=== PATIENT | male | born 1945 | race Caucasian/White ===

== ENCOUNTER 2020-08-22 12:31 | Inpatient (IN) | payer MEDICARE, MEDICAID ==
[2020-08-22] MEDS ORDERED: Cefepime 2 GM VIAL ONE (14:29)
[2020-08-22 14:30] LABS: #Eosinphils 0.3 thou/uL (0.0-0.7); #Lymphocytes 1.3 thou/uL (1.20-3.40); #Monocytes 0.6 thou/uL (0.11-0.59); #Neutrophils 3.6 thou/uL (1.40-6.50); %Basophils 0.7 % (0.0-1.0); %Eosinophils 4.6 % (0.0-10.0); %Lymphocytes 22.1 % (21.0-51.0); %Monocytes 9.8 % (0.0-10.0); %Neutrophils 62.8 % (42.0-75.0); Hemoglobin 12.9 g/dL (14.0-18.0); Mean Corpuscular HGB CONC 33.6 g/dL (32.0-36.0); Mean Platelet Volume 6.5 fL (7.4-10.4); Platelet Count 241 thou/uL (130-400); RBC Distribution Width 13.1 % (11.5-14.5); Red Blood Cell (RBC) Count 3.79 mill/uL (4.70-6.10); White Blood Cell (WBC) Count 5.7 thou/uL (4.8-10.8)
[2020-08-22] MEDS ORDERED: Vancomycin 1 GM/200 ML BAG ONE (14:47)
[2020-08-22 14:55] LABS: ALT (SGPT) 11 U/L (8-55); AST (SGOT) 15 U/L (5-34); Albumin 3.8 g/dL (3.4-4.8); Alkaline Phosphatase 146 U/L (40-110); Anion Gap 15 mmol/L (10-20); BUN (Urea Nitrogen) 29 mg/dL (8.4-25.7); Bilirubin, Total 0.4 mg/dL (0.2-1.2); Calc. Creatinine Clearance 0 mL/min (70-130); Calcium 10.1 mg/dL (7.8-10.44); Carbon Dioxide 30 mmol/L (23-31); Chloride 94 mmol/L (98-107); Globulin 3.3 g/dL (2.4-3.5); Glucose 88 mg/dL (83-110); Potassium 3.2 mmol/L (3.5-5.1); Protein, Total 7.1 g/dL (5.8-8.1); Sodium 136 mmol/L (136-145)
[2020-08-22 15:42] LABS: Bilirubin Negative (Negative); Blood, Urine Trace (Negative); Clarity Turbid (Clear); Glucose, Urine (Dipstick) Normal (Negative); Ketone, Urine Negative (Negative); Leukocyte 500 Leu/uL (Negative); Nitrite 2+ (Negative); Protein, Urine (Dipstick) Negative (Neg-Trace); RBC/HPF 0-3 HPF (0-3); Specific Gravity, Urine 1.009 (1.002-1.036); Squamous Epithelial 0-3 HPF (0-3); Triple Phosphate Crystal 1+ HPF (None Seen); Urobilinogen Normal mg/dL (Less than 2); pH, Urine 7.5 (5.0-9.0)
[2020-08-22 15:55] LABS: Bacteria/HPF 1+ HPF (None Seen)
[2020-08-22] MEDS ORDERED: HYDROcodone/Acetaminophen 5/325 mg Tablet PO PRN (16:31)
[2020-08-22] MEDS ORDERED: Acetaminophen 325 MG TAB PO PRN (16:31)
[2020-08-22] MEDS ORDERED: Senokot S 8.6-50 MG TAB PO PRN (16:31)
[2020-08-22] MEDS ORDERED: Acetaminophen 650 MG Suppository PR PRN (16:31)
[2020-08-22] MEDS ORDERED: Bisacodyl 5 MG TAB PO PRN (16:31)
[2020-08-22] MEDS ORDERED: Vancomycin 1 GM in Premix Bag 1 BAG IVPB SCH (16:45)
[2020-08-22] MEDS ORDERED: HYDROcodone/Acetaminophen 5/325 mg Tablet ONE (17:26)
[2020-08-22] MEDS ORDERED: Heparin 5,000 UNITS/ML VIAL SC SCH (21:00)
[2020-08-22] MEDS ORDERED: Atorvastatin Calcium 40 MG TAB PO SCH (21:00)
[2020-08-23] MEDS ORDERED: Cefepime 2 GM in Sodium Chloride 0.9% 100 ML IVPB SCH ×2 (02:00→14:00)
[2020-08-23] MEDS ORDERED: Aspirin 325 MG TAB PO SCH (09:00)
[2020-08-23] MEDS ORDERED: Vancomycin 1 GM in Premix Bag 1 BAG IVPB SCH (15:00)
== END 2020-08-22 19:49 | disposition short-term general hospital (02) | DRG 603 ==
LOC: ERS 12:31 → ERHOLD 14:51
PROVIDERS: ADMIT Internal Medicine; ATTEND Internal Medicine
DX: L03.115 Cellulitis of right lower limb (principal); I69.351 Hemiplegia and hemiparesis following cerebral infarction affecting right dominant side; Z20.822 Contact with and (suspected) exposure to COVID-19; J44.9 Chronic obstructive pulmonary disease, unspecified; K21.9 Gastro-esophageal reflux disease without esophagitis; F41.9 Anxiety disorder, unspecified; G47.00 Insomnia, unspecified; N35.919 Unspecified urethral stricture, male, unspecified site; E78.5 Hyperlipidemia, unspecified; R13.10 Dysphagia, unspecified; I25.10 Atherosclerotic heart disease of native coronary artery without angina pectoris; F17.210 Nicotine dependence, cigarettes, uncomplicated; I12.9 Hypertensive chronic kidney disease with stage 1 through stage 4 chronic kidney disease, or unspecified chronic kidney disease; N18.30 Chronic kidney disease, stage 3 unspecified; N40.0 Benign prostatic hyperplasia without lower urinary tract symptoms; E87.6 Hypokalemia; Z79.82 Long term (current) use of aspirin; Z79.899 Other long term (current) drug therapy; I69.321 Dysphasia following cerebral infarction
CPT/HCPCS: 36415; 80053; 81003; 81015; 83605; 85025; 85652; 86140; 87040; 87077; 87086; 87186; 96365; 96366; 96367; J0692; J3370

== ENCOUNTER 2021-09-17 15:30 | Inpatient (IN) | payer MEDICARE, MEDICAID ==
[2021-09-17 17:00] VITALS: BMI 21.4
[2021-09-17] MEDS ORDERED: hydrALAZINE 20 MG/ML VIAL SLOW IVP PRN (17:57)
[2021-09-17] MEDS ORDERED: Acetaminophen 325 MG TAB PO PRN (17:57)
[2021-09-17] MEDS ORDERED: Benzonatate 100 MG CAP PO PRN (17:57)
[2021-09-17] MEDS ORDERED: Senokot S 8.6-50 MG TAB PO PRN (17:57)
[2021-09-17] MEDS ORDERED: Loratadine 10 MG TAB PO PRN (18:08)
[2021-09-17] MEDS: HYDROcodone/Acetaminophen 10/325 mg Tablet PO PRN ×2 (18:16→22:58)
[2021-09-17] MEDS: tiZANidine HCl 4 MG TAB PO PRN ×2 (18:16→23:01)
[2021-09-17] MEDS: Nicotine 14 MG PATCH TD SCH (18:16)
[2021-09-17] MEDS: Cefepime 1 GM in Sodium Chloride 0.9% 100 ML IVPB SCH (19:15)
[2021-09-17] MEDS ORDERED: Famotidine 20 MG TAB PO SCH (21:00)
[2021-09-17] MEDS ORDERED: VANCOMYCIN 1.25 GM/250 ML BAG 1.25 GM in Premix Bag 1 BAG IVPB SCH (21:00)
[2021-09-17] MEDS: Heparin 5,000 UNITS/ML VIAL SC SCH (21:16)
[2021-09-17] MEDS: Metoprolol Tartrate 50 MG TAB PO SCH (21:16)
[2021-09-18] MEDS: tiZANidine HCl 4 MG TAB PO PRN ×2 (03:08→16:20)
[2021-09-18] MEDS: HYDROcodone/Acetaminophen 10/325 mg Tablet PO PRN ×3 (03:09→16:08)
[2021-09-18 06:13] LABS: #Monocytes 0.9 thou/uL (0.11-0.59); #Neutrophils 10.2 thou/uL (1.40-6.50); %Basophils 0.2 % (0.0-1.0); %Eosinophils 0.2 % (0.0-10.0); %Lymphocytes 7.9 % (21.0-51.0); %Monocytes 7.5 % (0.0-10.0); %Neutrophils 84.2 % (42.0-75.0); Hemoglobin 10.8 g/dL (14.0-18.0); Mean Corpuscular Hemoglobin 34.5 pg (27.0-31.0); Mean Platelet Volume 7.6 fL (7.4-10.4); Platelet Count 146 thou/uL (130-400); RBC Distribution Width 12.3 % (11.5-14.5); Red Blood Cell (RBC) Count 3.15 mill/uL (4.70-6.10); White Blood Cell (WBC) Count 12.1 thou/uL (4.8-10.8)
[2021-09-18 06:31] LABS: Anion Gap 12 mmol/L (10-20); BUN (Urea Nitrogen) 33 mg/dL (8.4-25.7); Calc. Creatinine Clearance 37 mL/min (70-130); Calcium 8.5 mg/dL (7.8-10.44); Carbon Dioxide 24 mmol/L (23-31); Chloride 106 mmol/L (98-107); Glucose 82 mg/dL (83-110); Sodium 138 mmol/L (136-145)
[2021-09-18] MEDS: Multivitamin W/ Minerals 1 TAB PO SCH (08:42)
[2021-09-18] MEDS: Venlafaxine HCl XR 150 MG CAP PO SCH (08:42)
[2021-09-18] MEDS: Heparin 5,000 UNITS/ML VIAL SC SCH ×3 (08:42→20:41)
[2021-09-18] MEDS: Cefepime 1 GM in Sodium Chloride 0.9% 100 ML IVPB SCH ×2 (08:42→20:41)
[2021-09-18] MEDS: Aspirin Chewable 81 MG TAB PO SCH (08:42)
[2021-09-18] MEDS: Famotidine 20 MG TAB PO SCH (08:42)
[2021-09-18] MEDS: Metoprolol Tartrate 50 MG TAB PO SCH ×2 (08:42→20:41)
[2021-09-18] MEDS: Nicotine 14 MG PATCH TD SCH (17:07)
[2021-09-18] MEDS ORDERED: Vancomycin 1 GM in Premix Bag 1 BAG IVPB SCH (21:00)
[2021-09-19] MEDS: HYDROcodone/Acetaminophen 10/325 mg Tablet PO PRN ×2 (01:10→05:57)
[2021-09-19] MEDS: tiZANidine HCl 4 MG TAB PO PRN ×2 (01:10→05:58)
[2021-09-19 06:15] LABS: #Eosinphils 0.2 thou/uL (0.0-0.7); #Monocytes 0.7 thou/uL (0.11-0.59); #Neutrophils 5.1 thou/uL (1.40-6.50); %Basophils 0.4 % (0.0-1.0); %Eosinophils 2.9 % (0.0-10.0); %Lymphocytes 14.7 % (21.0-51.0); %Monocytes 9.4 % (0.0-10.0); %Neutrophils 72.5 % (42.0-75.0); Hemoglobin 10.6 g/dL (14.0-18.0); Mean Corpuscular HGB CONC 32.3 g/dL (32.0-36.0); Mean Corpuscular Hemoglobin 33.5 pg (27.0-31.0); Platelet Count 144 thou/uL (130-400); RBC Distribution Width 11.7 % (11.5-14.5); Red Blood Cell (RBC) Count 3.18 mill/uL (4.70-6.10); White Blood Cell (WBC) Count 7.1 thou/uL (4.8-10.8)
[2021-09-19 07:11] LABS: Anion Gap 13 mmol/L (10-20); BUN (Urea Nitrogen) 29 mg/dL (8.4-25.7); Calc. Creatinine Clearance 38 mL/min (70-130); Calcium 8.5 mg/dL (7.8-10.44); Carbon Dioxide 24 mmol/L (23-31); Chloride 105 mmol/L (98-107); Glucose 89 mg/dL (83-110); Potassium 3.7 mmol/L (3.5-5.1); Sodium 138 mmol/L (136-145)
[2021-09-19 07:46] VITALS: BP 127/55; TEMP 98.6
[2021-09-19] MEDS: Famotidine 20 MG TAB PO SCH (08:34)
[2021-09-19] MEDS: Aspirin Chewable 81 MG TAB PO SCH (08:34)
[2021-09-19] MEDS: Multivitamin W/ Minerals 1 TAB PO SCH (08:34)
[2021-09-19] MEDS: Metoprolol Tartrate 50 MG TAB PO SCH (08:34)
[2021-09-19] MEDS: Venlafaxine HCl XR 150 MG CAP PO SCH (08:34)
[2021-09-19] MEDS: Heparin 5,000 UNITS/ML VIAL SC SCH (08:35)
[2021-09-19] MEDS: Cefepime 1 GM in Sodium Chloride 0.9% 100 ML IVPB SCH (08:35)
== END 2021-09-19 14:27 | DRG 698 ==
LOC: T4-B 16:38
PROVIDERS: ADMIT Internal Medicine; ATTEND Internal Medicine
DX: T83.511A Infection and inflammatory reaction due to indwelling urethral catheter, initial encounter (principal); G93.41 Metabolic encephalopathy; A41.9 Sepsis, unspecified organism; R65.20 Severe sepsis without septic shock; I69.951 Hemiplegia and hemiparesis following unspecified cerebrovascular disease affecting right dominant side; L03.115 Cellulitis of right lower limb; N39.0 Urinary tract infection, site not specified; Z20.822 Contact with and (suspected) exposure to COVID-19; F17.210 Nicotine dependence, cigarettes, uncomplicated; Z66 Do not resuscitate; E78.5 Hyperlipidemia, unspecified; Y84.6 Urinary catheterization as the cause of abnormal reaction of the patient, or of later complication, without mention of misadventure at the time of the procedure; N18.30 Chronic kidney disease, stage 3 unspecified; J44.9 Chronic obstructive pulmonary disease, unspecified; I12.9 Hypertensive chronic kidney disease with stage 1 through stage 4 chronic kidney disease, or unspecified chronic kidney disease; Z99.3 Dependence on wheelchair; Z79.82 Long term (current) use of aspirin; Z79.899 Other long term (current) drug therapy; Z79.51 Long term (current) use of inhaled steroids
CPT/HCPCS: 36415; 80048; 84145; 85025; 94640; J0692; J1644; J3370; J3490; J7620

== ENCOUNTER 2022-03-02 09:31 | Inpatient (IN) | payer MEDICARE, MEDICAID ==
[2022-03-02] MEDS ORDERED: Bisacodyl 10 MG SUPP PR PRN (10:43)
[2022-03-02] MEDS ORDERED: Polyethylene Glycol 3350 17 GM Packet PO SCH (10:45)
[2022-03-02] MEDS ORDERED: Bisacodyl 10 MG SUPP PR SCH (10:45)
[2022-03-02 10:54] LABS: CKMB 3.7 ng/mL (0-6.6)
[2022-03-02] MEDS ORDERED: Meropenem 1 GM in Sodium Chloride 0.9% 100 ML IVPB SCH ×2 (11:00→14:00)
[2022-03-02] MEDS ORDERED: Vancomycin HCl 500 MG in Sodium Chloride 0.9% 100 ML IVPB SCH (11:45)
[2022-03-02] MEDS: Sodium Chloride 0.9% 1,000 ML IV SCH ×2 (11:55→13:54)
[2022-03-02] MEDS ORDERED: Ipratropium Bromide 2.5 ml Neb ONE ×2 (12:22→12:25)
[2022-03-02] MEDS: Ipratropium Bromide 2.5 ml Neb NEB SCH ×2 (12:26→18:55)
[2022-03-02 13:56] VITALS: BMI 20.6
[2022-03-02] MEDS ORDERED: Furosemide 20 MG/2 ML VIAL SLOW IVP SCH (15:00)
[2022-03-02] MEDS ORDERED: ALPRAZolam 0.25 MG TAB PO SCH (15:00)
[2022-03-02] MEDS ORDERED: Mineral Oil ENEMA PR SCH (15:00)
[2022-03-02] MEDS ORDERED: fentaNYL PF 100 MCG/2 ML SYRINGE ONE (15:47)
[2022-03-02] MEDS ORDERED: B & O 30 MG SUPP ONE (15:48)
[2022-03-02] MEDS ORDERED: Iopamidol 0 ML ONE (15:48)
[2022-03-02] MEDS: Acetaminophen 325 MG TAB PO PRN (19:58)
[2022-03-02] MEDS ORDERED: Vancomycin 1 GM, Admixture Fee 1 EACH in Premix Bag 1 BAG IVPB PRN (21:00)
[2022-03-02] MEDS: Meropenem 500 MG in Sodium Chloride 0.9% 100 ML IVPB SCH (22:37)
[2022-03-03] MEDS: Ipratropium Bromide 2.5 ml Neb NEB SCH ×4 (00:20→18:19)
[2022-03-03 04:14] LABS: #Lymphocytes 0.6 thou/uL (1.20-3.40); #Monocytes 1.3 thou/uL (0.11-0.59); %Basophils 0.2 % (0.0-1.0); %Eosinophils 0.2 % (0.0-10.0); %Lymphocytes 4.9 % (21.0-51.0); %Monocytes 10.8 % (0.0-10.0); Hemoglobin 10.4 g/dL (14.0-18.0); Mean Corpuscular HGB CONC 33.6 g/dL (32.0-36.0); Mean Corpuscular Hemoglobin 34.2 pg (27.0-31.0); Mean Platelet Volume 6.9 fL (7.4-10.4); Platelet Count 255 thou/uL (130-400); RBC Distribution Width 11.2 % (11.5-14.5); Red Blood Cell (RBC) Count 3.04 mill/uL (4.70-6.10); White Blood Cell (WBC) Count 11.9 thou/uL (4.8-10.8)
[2022-03-03 04:33] LABS: Anion Gap 13 mmol/L (10-20); BUN (Urea Nitrogen) 43 mg/dL (8.4-25.7); Calc. Creatinine Clearance 27 mL/min (70-130); Calcium 8.2 mg/dL (7.8-10.44); Carbon Dioxide 21 mmol/L (23-31); Chloride 102 mmol/L (98-107); Estimated GFR 34; Glucose 90 mg/dL (83-110); Potassium 3.7 mmol/L (3.5-5.1); Sodium 132 mmol/L (136-145)
[2022-03-03] MEDS ORDERED: Iopamidol 30 ML ONE (07:47)
[2022-03-03] MEDS ORDERED: B & O 30 MG SUPP ONE (07:49)
[2022-03-03] MEDS ORDERED: fentaNYL PF 100 MCG/2 ML SYRINGE ONE (08:15)
[2022-03-03] MEDS ORDERED: Esmolol 100 MG/10 ML VIAL ONE (08:40)
[2022-03-03] MEDS ORDERED: PHENYLEPHRINE-NS 100 MCG/ML 10 ML SYRINGE ONE (08:40)
[2022-03-03] MEDS ORDERED: Glycopyrrolate 0.2 MG/ML 5 ML SYRINGE ONE (08:40)
[2022-03-03] MEDS ORDERED: Ondansetron PF 4 MG/2 ML Vial ONE (08:40)
[2022-03-03] MEDS ORDERED: NEOSTIGMINE 3 MG/3 ML SYR 3 MG/3 ML SYRINGE ONE (08:40)
[2022-03-03] MEDS ORDERED: Rocuronium Bromide 10 MG/ML (10ML VIAL) ONE (08:40)
[2022-03-03] MEDS ORDERED: Metoprolol Tartrate 5 MG/5 ML VIAL ONE (08:40)
[2022-03-03] MEDS ORDERED: PROPOFOL 200 MG/20 ML VIAL ONE (08:40)
[2022-03-03] MEDS ORDERED: Enoxaparin Sodium 30 MG/0.3 ML SYRINGE SC SCH (09:00)
[2022-03-03] MEDS ORDERED: Ondansetron HCl/PF 4 MG/2 ML Vial IVP PRN (10:33)
[2022-03-03] MEDS ORDERED: Promethazine HCl 25 MG/ML VIAL IVPB PRN (10:33)
[2022-03-03] MEDS ORDERED: Promethazine HCl 25 MG/ML VIAL IM PRN (10:33)
[2022-03-03 11:14] LABS: Bacteria/HPF 3+ HPF (None Seen); Bilirubin Negative (Negative); Blood, Urine 3+ (Negative); Glucose, Urine (Dipstick) Normal (Negative); Ketone, Urine Trace mg/dL (Negative); Leukocyte 500 Leu/uL (Negative); Nitrite Negative (Negative); Protein, Urine (Dipstick) 50 mg/dL (Neg-Trace); RBC/HPF 21-50 HPF (0-3); Specific Gravity, Urine 1.009 (1.002-1.036); Squamous Epithelial None Seen HPF (0-3); Urobilinogen Normal mg/dL (Less than 2); WBC/HPF Greater than 50 HPF (0-3)
[2022-03-03 11:15] LABS: Clarity Turbid (Clear)
[2022-03-03] MEDS ORDERED: FENTANYL 50 MCG/ML 1 ML VIAL ONE ×3 (11:32→11:55)
[2022-03-03] MEDS: Meropenem 500 MG in Sodium Chloride 0.9% 100 ML IVPB SCH ×2 (12:38→21:52)
[2022-03-03 13:04] LABS: Vancomycin, Random 11.9 ug/mL (See Comment)
[2022-03-03] MEDS ORDERED: Vancomycin HCl 500 MG in Sodium Chloride 0.9% 100 ML IV SCH (13:30)
[2022-03-03] MEDS ORDERED: Vancomycin Dose by Levels Sliding Scale (Wt <71) FS SCH (13:30)
[2022-03-03] MEDS ORDERED: HYDROmorphone 0.5 MG/0.5 ML SYRINGE SLOW IVP SCH (14:00)
[2022-03-03] MEDS: Acetaminophen 325 MG TAB PO PRN (15:42)
[2022-03-03] MEDS: Polyethylene Glycol 3350 17 GM Packet PO PRN (15:42)
[2022-03-03] MEDS: HYDROcodone/Acetaminophen 5/325 mg Tablet PO PRN ×2 (17:12→21:56)
[2022-03-03] MEDS: Nicotine 14 MG PATCH TD SCH (17:14)
[2022-03-03] MEDS: Phenazopyridine HCl 100 MG TAB PO SCH (17:14)
[2022-03-03] MEDS ORDERED: Phenazopyridine HCl 95 MG TAB PO SCH (18:00)
[2022-03-03] MEDS ORDERED: tiZANidine HCl 4 MG TAB PO SCH (21:15)
[2022-03-03] MEDS: Trospium 20 MG TAB PO SCH (21:53)
[2022-03-04] MEDS: Ipratropium Bromide 2.5 ml Neb NEB SCH ×4 (01:31→18:18)
[2022-03-04 04:44] LABS: #Eosinphils 0.1 thou/uL (0.0-0.7); #Lymphocytes 0.7 thou/uL (1.20-3.40); #Monocytes 1.3 thou/uL (0.11-0.59); #Neutrophils 6.8 thou/uL (1.40-6.50); %Eosinophils 0.6 % (0.0-10.0); %Lymphocytes 7.4 % (21.0-51.0); %Monocytes 14.6 % (0.0-10.0); %Neutrophils 77.4 % (42.0-75.0); Mean Corpuscular HGB CONC 33.2 g/dL (32.0-36.0); Mean Corpuscular Hemoglobin 33.2 pg (27.0-31.0); Mean Corpuscular Volume 99.9 fl (78.0-98.0); Platelet Count 273 thou/uL (130-400); RBC Distribution Width 11.3 % (11.5-14.5); Red Blood Cell (RBC) Count 3.02 mill/uL (4.70-6.10); White Blood Cell (WBC) Count 8.7 thou/uL (4.8-10.8)
[2022-03-04 05:02] LABS: Anion Gap 13 mmol/L (10-20); BUN (Urea Nitrogen) 33 mg/dL (8.4-25.7); Calc. Creatinine Clearance 31 mL/min (70-130); Calcium 8.2 mg/dL (7.8-10.44); Carbon Dioxide 23 mmol/L (23-31); Chloride 103 mmol/L (98-107); Estimated GFR 40; Glucose 109 mg/dL (83-110); Potassium 3.6 mmol/L (3.5-5.1); Sodium 135 mmol/L (136-145)
[2022-03-04] MEDS: HYDROcodone/Acetaminophen 5/325 mg Tablet PO PRN ×4 (05:32→21:57)
[2022-03-04] MEDS: Phenazopyridine HCl 100 MG TAB PO SCH ×3 (08:23→17:38)
[2022-03-04] MEDS: Meropenem 500 MG in Sodium Chloride 0.9% 100 ML IVPB SCH (08:23)
[2022-03-04] MEDS: Trospium 20 MG TAB PO SCH ×2 (08:23→20:43)
[2022-03-04] MEDS ORDERED: cefTRIAXone Sodium 1 MG in Syringe 0 ML IVPB SCH (13:30)
[2022-03-04] MEDS ORDERED: Vancomycin HCl 500 MG in Sodium Chloride 0.9% 100 ML IV SCH (14:30)
[2022-03-04] MEDS: cefTRIAXone\\ROCEPHIN 1 GM in Sodium Chloride 0.9% 100 ML IVPB SCH (14:31)
[2022-03-04] MEDS: Nicotine 14 MG PATCH TD SCH (15:25)
[2022-03-04] MEDS ORDERED: Ondansetron PF 4 MG/2 ML Vial IVP PRN (15:38)
[2022-03-05] MEDS ORDERED: tiZANidine HCl 4 MG TAB PO SCH (01:15)
[2022-03-05] MEDS: HYDROcodone/Acetaminophen 5/325 mg Tablet PO PRN ×4 (02:09→21:13)
[2022-03-05] MEDS: Ipratropium Bromide 2.5 ml Neb NEB SCH ×5 (02:10→23:50)
[2022-03-05 03:09] LABS: Hemoglobin 10.3 g/dL (14.0-18.0); Mean Corpuscular HGB CONC 33.1 g/dL (32.0-36.0); Mean Corpuscular Hemoglobin 33.1 pg (27.0-31.0); Mean Corpuscular Volume 99.8 fl (78.0-98.0); Mean Platelet Volume 6.7 fL (7.4-10.4); Platelet Count 282 thou/uL (130-400); RBC Distribution Width 11.2 % (11.5-14.5); White Blood Cell (WBC) Count 8.7 thou/uL (4.8-10.8)
[2022-03-05] MEDS ORDERED: Nitroglycerin 2% Ointment 1 INCH/1 GM Packet TOP SCH (03:15)
[2022-03-05 03:31] LABS: Anion Gap 13 mmol/L (10-20); BUN (Urea Nitrogen) 24 mg/dL (8.4-25.7); Calc. Creatinine Clearance 41 mL/min (70-130); Calcium 8.3 mg/dL (7.8-10.44); Carbon Dioxide 23 mmol/L (23-31); Chloride 103 mmol/L (98-107); Estimated GFR 56; Glucose 134 mg/dL (83-110); Potassium 3.2 mmol/L (3.5-5.1); Sodium 136 mmol/L (136-145)
[2022-03-05 03:32] LABS: Troponin I 0.026 ng/mL (< 0.028)
[2022-03-05 03:53] LABS: Band 10 % (5-11); Lymphocytes 5 % (21-51); MDiff Complete? YES; Monocytes 8 % (0-10); Neutrophil 77 % (42-75)
[2022-03-05] MEDS: Phenazopyridine HCl 100 MG TAB PO SCH ×3 (09:44→17:53)
[2022-03-05] MEDS: Trospium 20 MG TAB PO SCH ×2 (09:44→21:14)
[2022-03-05] MEDS ORDERED: Potassium Chloride 20 MEQ TAB PO SCH (10:15)
[2022-03-05 13:25] LABS: Vancomycin, Random 9.2 ug/mL (See Comment)
[2022-03-05] MEDS ORDERED: Vancomycin HCl 750 MG in Sodium Chloride 0.9% 250 ML 250 ML IVPB SCH (13:45)
[2022-03-05] MEDS: cefTRIAXone\\ROCEPHIN 1 GM in Sodium Chloride 0.9% 100 ML IVPB SCH (13:55)
[2022-03-05] MEDS: Nicotine 14 MG PATCH TD SCH (15:43)
[2022-03-06] MEDS: HYDROcodone/Acetaminophen 5/325 mg Tablet PO PRN ×5 (01:16→22:06)
[2022-03-06] MEDS: Polyethylene Glycol 3350 17 GM Packet PO PRN (01:23)
[2022-03-06 04:53] LABS: #Eosinphils 0.1 thou/uL (0.0-0.7); #Lymphocytes 1.1 thou/uL (1.20-3.40); #Monocytes 1.4 thou/uL (0.11-0.59); #Neutrophils 9.8 thou/uL (1.40-6.50); %Basophils 0.1 % (0.0-1.0); %Lymphocytes 9.1 % (21.0-51.0); %Monocytes 11.6 % (0.0-10.0); %Neutrophils 78.3 % (42.0-75.0); Hemoglobin 11.2 g/dL (14.0-18.0); Mean Corpuscular HGB CONC 32.8 g/dL (32.0-36.0); Mean Corpuscular Hemoglobin 32.8 pg (27.0-31.0); Platelet Count 355 thou/uL (130-400); RBC Distribution Width 11.2 % (11.5-14.5); White Blood Cell (WBC) Count 12.5 thou/uL (4.8-10.8)
[2022-03-06 05:55] LABS: Anion Gap 12 mmol/L (10-20); BUN (Urea Nitrogen) 19 mg/dL (8.4-25.7); Calc. Creatinine Clearance 43 mL/min (70-130); Calcium 8.7 mg/dL (7.8-10.44); Carbon Dioxide 28 mmol/L (23-31); Chloride 101 mmol/L (98-107); Estimated GFR 59; Glucose 100 mg/dL (83-110); Potassium 3.6 mmol/L (3.5-5.1); Sodium 137 mmol/L (136-145)
[2022-03-06] MEDS: Ipratropium Bromide 2.5 ml Neb NEB SCH ×3 (07:11→18:25)
[2022-03-06] MEDS: Trospium 20 MG TAB PO SCH ×2 (09:37→19:57)
[2022-03-06] MEDS: Phenazopyridine HCl 100 MG TAB PO SCH ×3 (09:38→17:30)
[2022-03-06 13:45] LABS: Vancomycin, Random 10.7 ug/mL (See Comment)
[2022-03-06] MEDS: cefTRIAXone\\ROCEPHIN 1 GM in Sodium Chloride 0.9% 100 ML IVPB SCH (14:24)
[2022-03-06] MEDS: Nicotine 14 MG PATCH TD SCH (16:11)
[2022-03-06] MEDS ORDERED: tiZANidine HCl 4 MG TAB PO SCH (21:30)
[2022-03-07] MEDS: Ipratropium Bromide 2.5 ml Neb NEB SCH ×5 (05:44→22:23)
[2022-03-07] MEDS: HYDROcodone/Acetaminophen 5/325 mg Tablet PO PRN ×4 (08:22→21:46)
[2022-03-07] MEDS: Trospium 20 MG TAB PO SCH ×2 (08:22→21:46)
[2022-03-07] MEDS: Phenazopyridine HCl 100 MG TAB PO SCH ×3 (08:22→17:45)
[2022-03-07] MEDS: cefTRIAXone\\ROCEPHIN 1 GM in Sodium Chloride 0.9% 100 ML IVPB SCH (15:48)
[2022-03-07] MEDS: Nicotine 14 MG PATCH TD SCH (15:52)
[2022-03-07] MEDS: Polyethylene Glycol 3350 17 GM Packet PO PRN (15:56)
[2022-03-08] MEDS: Acetaminophen 325 MG TAB PO PRN ×3 (00:39→22:15)
[2022-03-08 04:45] LABS: #Eosinphils 0.4 thou/uL (0.0-0.7); #Lymphocytes 1.5 thou/uL (1.20-3.40); #Monocytes 0.9 thou/uL (0.11-0.59); %Basophils 0.4 % (0.0-1.0); %Eosinophils 4.3 % (0.0-10.0); %Lymphocytes 17.3 % (21.0-51.0); Hemoglobin 10.7 g/dL (14.0-18.0); Mean Corpuscular HGB CONC 32.9 g/dL (32.0-36.0); Mean Corpuscular Hemoglobin 32.9 pg (27.0-31.0); Mean Platelet Volume 6.9 fL (7.4-10.4); Platelet Count 442 10x3/uL (130-400); RBC Distribution Width 11.2 % (11.5-14.5); Red Blood Cell (RBC) Count 3.26 mill/uL (4.70-6.10); White Blood Cell (WBC) Count 8.9 10x3/uL (4.8-10.8)
[2022-03-08 05:11] LABS: Anion Gap 16 mmol/L (10-20); BUN (Urea Nitrogen) 28 mg/dL (8.4-25.7); Calc. Creatinine Clearance 37 mL/min (70-130); Calcium 8.6 mg/dL (7.8-10.44); Carbon Dioxide 24 mmol/L (23-31); Chloride 100 mmol/L (98-107); Estimated GFR 50; Glucose 102 mg/dL (83-110); Potassium 4.2 mmol/L (3.5-5.1); Sodium 136 mmol/L (136-145)
[2022-03-08] MEDS: Ipratropium Bromide 2.5 ml Neb NEB SCH ×3 (07:50→18:56)
[2022-03-08] MEDS: Phenazopyridine HCl 100 MG TAB PO SCH ×3 (09:43→17:33)
[2022-03-08] MEDS: Polyethylene Glycol 3350 17 GM Packet PO PRN (09:43)
[2022-03-08] MEDS: Trospium 20 MG TAB PO SCH ×2 (09:44→19:43)
[2022-03-08] MEDS: Sodium Chloride 0.9% 1,000 ML IV SCH ×2 (09:44→19:43)
[2022-03-08] MEDS: HYDROcodone/Acetaminophen 5/325 mg Tablet PO PRN ×3 (09:44→19:44)
[2022-03-08] MEDS: cefTRIAXone\\ROCEPHIN 1 GM in Sodium Chloride 0.9% 100 ML IVPB SCH (14:03)
[2022-03-08] MEDS: Nicotine 14 MG PATCH TD SCH (16:33)
[2022-03-09] MEDS: HYDROcodone/Acetaminophen 5/325 mg Tablet PO PRN ×2 (01:20→09:03)
[2022-03-09] MEDS: Ipratropium Bromide 2.5 ml Neb NEB SCH ×4 (01:50→18:04)
[2022-03-09] MEDS: tiZANidine HCl 4 MG TAB PO SCH ×4 (01:58→20:52)
[2022-03-09 04:29] LABS: #Basophils 0.1 thou/uL (0.0-0.2); #Eosinphils 0.5 thou/uL (0.0-0.7); #Lymphocytes 1.1 thou/uL (1.20-3.40); #Neutrophils 9.6 thou/uL (1.40-6.50); %Basophils 0.4 % (0.0-1.0); %Eosinophils 4.1 % (0.0-10.0); %Monocytes 8.3 % (0.0-10.0); %Neutrophils 78.2 % (42.0-75.0); Hemoglobin 9.6 g/dL (14.0-18.0); Mean Corpuscular HGB CONC 33.2 g/dL (32.0-36.0); Mean Corpuscular Hemoglobin 33.1 pg (27.0-31.0); Mean Corpuscular Volume 99.7 fl (78.0-98.0); Mean Platelet Volume 6.8 fL (7.4-10.4); Platelet Count 399 10x3/uL (130-400); RBC Distribution Width 11.3 % (11.5-14.5); Red Blood Cell (RBC) Count 2.89 mill/uL (4.70-6.10); White Blood Cell (WBC) Count 12.3 10x3/uL (4.8-10.8)
[2022-03-09] MEDS: Sodium Chloride 0.9% 1,000 ML IV SCH ×2 (05:39→17:19)
[2022-03-09 05:43] LABS: ALT (SGPT) 18 U/L (8-55); AST (SGOT) 19 U/L (5-34); Albumin 2.7 g/dL (3.4-4.8); Alkaline Phosphatase 95 U/L (40-110); Anion Gap 11 mmol/L (10-20); BUN (Urea Nitrogen) 26 mg/dL (8.4-25.7); Bilirubin, Total 0.4 mg/dL (0.2-1.2); Calc. Creatinine Clearance 42 mL/min (70-130); Calcium 8.4 mg/dL (7.8-10.44); Carbon Dioxide 23 mmol/L (23-31); Chloride 105 mmol/L (98-107); Estimated GFR 57; Glucose 88 mg/dL (83-110); Potassium 4.1 mmol/L (3.5-5.1); Protein, Total 5.7 g/dL (5.8-8.1); Sodium 135 mmol/L (136-145)
[2022-03-09] MEDS: Phenazopyridine HCl 100 MG TAB PO SCH ×3 (09:00→18:36)
[2022-03-09] MEDS: Trospium 20 MG TAB PO SCH ×2 (09:00→20:53)
[2022-03-09] MEDS ORDERED: fentaNYL PF 100 MCG/2 ML SYRINGE ONE (13:39)
[2022-03-09] MEDS ORDERED: Bupivacaine HCl 0.5%/Epinephrine 1:200,000/PF 30 ml Vial ONE (13:44)
[2022-03-09] MEDS ORDERED: cefTRIAXone\\ROCEPHIN 2 GM VIAL ONE (13:51)
[2022-03-09] MEDS ORDERED: Sodium Chloride 0.9% 100 ML ONE ×2 (13:51→13:56)
[2022-03-09] MEDS ORDERED: cefTRIAXone\\ROCEPHIN 1 GM VIAL ONE (13:56)
[2022-03-09] MEDS ORDERED: Glycopyrrolate 0.2 MG/ML 5 ML SYRINGE ONE (14:11)
[2022-03-09] MEDS ORDERED: PHENYLEPHRINE-NS 100 MCG/ML 10 ML SYRINGE ONE (14:11)
[2022-03-09] MEDS ORDERED: PROPOFOL 200 MG/20 ML VIAL ONE (14:11)
[2022-03-09] MEDS ORDERED: NEOSTIGMINE 3 MG/3 ML SYR 3 MG/3 ML SYRINGE ONE (14:11)
[2022-03-09] MEDS ORDERED: Ondansetron PF 4 MG/2 ML Vial ONE (14:11)
[2022-03-09] MEDS ORDERED: Rocuronium Bromide 10 MG/ML (10ML VIAL) ONE (14:11)
[2022-03-09] MEDS ORDERED: Dexamethasone 20 MG/5 ML VIAL ONE (14:11)
[2022-03-09] MEDS ORDERED: Promethazine HCl 25 MG/ML VIAL IM PRN (16:02)
[2022-03-09] MEDS ORDERED: Promethazine HCl 25 MG/ML VIAL IVPB PRN (16:02)
[2022-03-09] MEDS ORDERED: PACU-Morphine 4MG/ML VIAL SLOW IVP PRN (16:02)
[2022-03-09] MEDS ORDERED: Ondansetron HCl/PF 4 MG/2 ML Vial IVP PRN (16:02)
[2022-03-09] MEDS ORDERED: Morphine Sulfate 2 MG/ML SYRINGE SLOW IVP PRN (16:02)
[2022-03-09] MEDS ORDERED: HYDROmorphone 2 MG/ML VIAL SLOW IVP PRN (16:02)
[2022-03-09] MEDS ORDERED: Lorazepam 2 MG/ML VIAL ONE (16:09)
[2022-03-09] MEDS: cefTRIAXone\\ROCEPHIN 1 GM in Sodium Chloride 0.9% 100 ML IVPB SCH (17:18)
[2022-03-09] MEDS: Nicotine 14 MG PATCH TD SCH (20:48)
[2022-03-10] MEDS: Ipratropium Bromide 2.5 ml Neb NEB SCH ×4 (02:00→19:07)
[2022-03-10] MEDS: tiZANidine HCl 4 MG TAB PO SCH ×5 (03:08→20:20)
[2022-03-10] MEDS ORDERED: Polyethylene Glycol 3350 17 GM Packet PO PRN (03:48)
[2022-03-10] MEDS ORDERED: Acetaminophen 325 MG TAB PO PRN (03:49)
[2022-03-10] MEDS ORDERED: Bisacodyl 10 MG SUPP PR PRN (03:49)
[2022-03-10] MEDS ORDERED: Ondansetron PF 4 MG/2 ML Vial IVP PRN (03:50)
[2022-03-10] MEDS: Sodium Chloride 0.9% 1,000 ML IV SCH ×3 (04:31→15:07)
[2022-03-10] MEDS: HYDROcodone/Acetaminophen 5/325 mg Tablet PO PRN ×2 (06:27→10:56)
[2022-03-10] MEDS: Phenazopyridine HCl 100 MG TAB PO SCH ×3 (08:48→17:28)
[2022-03-10] MEDS: Trospium 20 MG TAB PO SCH ×2 (08:48→20:21)
[2022-03-10 08:53] LABS: #Monocytes 0.7 thou/uL (0.11-0.59); #Neutrophils 15.8 thou/uL (1.40-6.50); %Eosinophils 0.1 % (0.0-10.0); %Lymphocytes 5.4 % (21.0-51.0); %Monocytes 4.2 % (0.0-10.0); %Neutrophils 90.2 % (42.0-75.0); Hemoglobin 9.5 g/dL (14.0-18.0); Mean Corpuscular HGB CONC 32.7 g/dL (32.0-36.0); Mean Corpuscular Hemoglobin 33.2 pg (27.0-31.0); Mean Platelet Volume 6.5 fL (7.4-10.4); Platelet Count 481 10x3/uL (130-400); RBC Distribution Width 11.4 % (11.5-14.5); Red Blood Cell (RBC) Count 2.87 mill/uL (4.70-6.10); White Blood Cell (WBC) Count 17.5 10x3/uL (4.8-10.8)
[2022-03-10 09:11] LABS: Anion Gap 12 mmol/L (10-20); BUN (Urea Nitrogen) 26 mg/dL (8.4-25.7); Calc. Creatinine Clearance 40 mL/min (70-130); Calcium 8.1 mg/dL (7.8-10.44); Carbon Dioxide 24 mmol/L (23-31); Chloride 106 mmol/L (98-107); Estimated GFR 54; Glucose 103 mg/dL (83-110); Potassium 4.3 mmol/L (3.5-5.1); Sodium 138 mmol/L (136-145)
[2022-03-10] MEDS: oxyCODONE/Acetaminophen 5 mg/325 mg Tablet PO PRN ×2 (15:06→22:53)
[2022-03-10] MEDS: cefTRIAXone\\ROCEPHIN 1 GM in Sodium Chloride 0.9% 100 ML IVPB SCH (15:07)
[2022-03-10] MEDS: Nicotine 14 MG PATCH TD SCH (17:28)
[2022-03-11] MEDS: Ipratropium Bromide 2.5 ml Neb NEB SCH ×3 (00:15→14:22)
[2022-03-11] MEDS: Sodium Chloride 0.9% 1,000 ML IV SCH ×3 (02:34→21:25)
[2022-03-11] MEDS: Morphine 4 MG/ML VIAL SLOW IVP PRN ×3 (03:17→21:41)
[2022-03-11] MEDS: tiZANidine HCl 4 MG TAB PO SCH ×4 (03:18→20:08)
[2022-03-11 05:00] LABS: #Eosinphils 0.1 thou/uL (0.0-0.7); #Lymphocytes 0.8 thou/uL (1.20-3.40); #Monocytes 1.7 thou/uL (0.11-0.59); #Neutrophils 16.4 thou/uL (1.40-6.50); %Basophils 0.1 % (0.0-1.0); %Eosinophils 0.4 % (0.0-10.0); %Monocytes 9.1 % (0.0-10.0); %Neutrophils 86.5 % (42.0-75.0); Hemoglobin 8.9 g/dL (14.0-18.0); Mean Corpuscular HGB CONC 31.8 g/dL (32.0-36.0); Mean Corpuscular Hemoglobin 32.5 pg (27.0-31.0); Mean Platelet Volume 6.7 fL (7.4-10.4); Platelet Count 456 10x3/uL (130-400); RBC Distribution Width 11.7 % (11.5-14.5); Red Blood Cell (RBC) Count 2.72 mill/uL (4.70-6.10)
[2022-03-11 05:19] LABS: ALT (SGPT) 15 U/L (8-55); AST (SGOT) 19 U/L (5-34); Albumin 2.8 g/dL (3.4-4.8); Alkaline Phosphatase 101 U/L (40-110); Anion Gap 12 mmol/L (10-20); BUN (Urea Nitrogen) 27 mg/dL (8.4-25.7); Bilirubin, Total 0.5 mg/dL (0.2-1.2); Calc. Creatinine Clearance 39 mL/min (70-130); Calcium 8.1 mg/dL (7.8-10.44); Carbon Dioxide 24 mmol/L (23-31); Chloride 106 mmol/L (98-107); Estimated GFR 53; Glucose 93 mg/dL (83-110); Magnesium 1.8 mg/dL (1.6-2.6); Potassium 4.3 mmol/L (3.5-5.1); Protein, Total 5.8 g/dL (5.8-8.1); Sodium 138 mmol/L (136-145)
[2022-03-11 05:22] LABS: Phosphorus 1.5 mg/dL (2.3-4.7)
[2022-03-11] MEDS ORDERED: PHOS-NAK 1 PKT PACK PO SCH (05:45)
[2022-03-11] MEDS: oxyCODONE/Acetaminophen 5 mg/325 mg Tablet PO PRN (06:35)
[2022-03-11] MEDS ORDERED: Sodium Phosphate 30 MMOL in Sodium Chloride 0.9% 250 ML 250 ML IVPB SCH (08:15)
[2022-03-11] MEDS: Phenazopyridine HCl 100 MG TAB PO SCH ×3 (08:33→17:02)
[2022-03-11] MEDS: Trospium 20 MG TAB PO SCH ×2 (08:36→20:08)
[2022-03-11 12:12] LABS: Bacteria/HPF None Seen HPF (None Seen); Bilirubin Negative (Negative); Blood, Urine 3+ (Negative); Clarity Turbid (Clear); Glucose, Urine (Dipstick) Normal (Negative); Ketone, Urine Negative (Negative); Leukocyte 500 Leu/uL (Negative); Nitrite Negative (Negative); Protein, Urine (Dipstick) 30 mg/dL (Neg-Trace); RBC/HPF Greater than 50 HPF (0-3); Specific Gravity, Urine 1.008 (1.002-1.036); Squamous Epithelial 0-3 HPF (0-3); Urobilinogen Normal mg/dL (Less than 2); WBC/HPF Greater than 50 HPF (0-3); pH, Urine 5.5 (5.0-9.0)
[2022-03-11 12:15] LABS: Urine Culture Reflex Yes Yes
[2022-03-11] MEDS: HYDROcodone/Acetaminophen 5/325 mg Tablet PO PRN ×2 (13:16→20:11)
[2022-03-11] MEDS: cefTRIAXone\\ROCEPHIN 1 GM in Sodium Chloride 0.9% 100 ML IVPB SCH (13:16)
[2022-03-11] MEDS ORDERED: Piperacillin/Tazobactam 3.375 GM in Sodium Chloride 0.9% 100 ML IVPB SCH (14:45)
[2022-03-11] MEDS: Nicotine 14 MG PATCH TD SCH (15:08)
[2022-03-11 16:21] LABS: Actual Bicarbonate (HCO3v) 24 mEq/L (22-28); Analyzer IN Cardio OR; Base Excess -0.4 mEq/L (-2.0 to +3.0); Calcium, Ionized (venous) 1.09 mmol/L (1.16-1.32); Chloride (VBG) 103 mmol/L (98-106); Sodium 132.3 mmol/L (133-146); pH (venous) 7.42 (7.32-7.43)
[2022-03-11] MEDS ORDERED: Ipratropium Bromide 2.5 ml Neb NEB SCH (18:30)
[2022-03-11] MEDS: Piperacillin/Tazobactam 3.375 GM in Sodium Chloride 0.9% 100 ML IVPB SCH (20:09)
[2022-03-12] MEDS: Sodium Chloride 0.9% 1,000 ML IV SCH (01:47)
[2022-03-12] MEDS: tiZANidine HCl 4 MG TAB PO SCH ×3 (03:57→14:27)
[2022-03-12] MEDS: Piperacillin/Tazobactam 3.375 GM in Sodium Chloride 0.9% 100 ML IVPB SCH ×2 (04:53→13:09)
[2022-03-12 05:13] LABS: ALT (SGPT) 13 U/L (8-55); AST (SGOT) 16 U/L (5-34); Albumin 2.7 g/dL (3.4-4.8); Alkaline Phosphatase 109 U/L (40-110); Anion Gap 14 mmol/L (10-20); BUN (Urea Nitrogen) 20 mg/dL (8.4-25.7); Bilirubin, Total 0.8 mg/dL (0.2-1.2); Calc. Creatinine Clearance 38 mL/min (70-130); Calcium 7.8 mg/dL (7.8-10.44); Carbon Dioxide 21 mmol/L (23-31); Chloride 103 mmol/L (98-107); Estimated GFR 51; Globulin 2.9 g/dL (2.4-3.5); Glucose 91 mg/dL (83-110); Protein, Total 5.6 g/dL (5.8-8.1); Sodium 134 mmol/L (136-145)
[2022-03-12] MEDS ORDERED: Electrolyte Replacement Protocol 1 EACH FS ONE (07:35)
[2022-03-12] MEDS ORDERED: Electrolyte Replacement Protocol FS PRN (08:00)
[2022-03-12 08:04] LABS: Hemoglobin 8.9 g/dL (14.0-18.0); Mean Corpuscular HGB CONC 32.8 g/dL (32.0-36.0); Mean Platelet Volume 6.6 fL (7.4-10.4); Platelet Count 443 10x3/uL (130-400); RBC Distribution Width 11.7 % (11.5-14.5); White Blood Cell (WBC) Count 24.3 10x3/uL (4.8-10.8)
[2022-03-12 08:12] LABS: Magnesium 1.5 mg/dL (1.6-2.6); Phosphorus 2.4 mg/dL (2.3-4.7)
[2022-03-12] MEDS ORDERED: Magnesium 2 GM/50 ML(in water) 2 GM in Premix Bag 1 BAG IVPB SCH (09:15)
[2022-03-12] MEDS: Phenazopyridine HCl 100 MG TAB PO SCH ×2 (09:18→14:28)
[2022-03-12] MEDS: Trospium 20 MG TAB PO SCH (09:18)
[2022-03-12] MEDS ORDERED: Vancomycin HCl 750 MG in Sodium Chloride 0.9% 250 ML 250 ML IVPB SCH (09:41)
[2022-03-12 10:02] LABS: Band 12 % (5-11); Lymphocytes 4 % (21-51); MDiff Complete? YES; Monocytes 5 % (0-10); Neutrophil 79 % (42-75); Platelet Morphology Comment Appears Increased; Polychromasia SLIGHT = 2-3 cells (100X) (0-2/hpf)
[2022-03-12] MEDS: HYDROcodone/Acetaminophen 5/325 mg Tablet PO PRN (10:15)
[2022-03-12] MEDS ORDERED: Vancomycin 1 GM in Premix Bag 1 BAG IVPB SCH (11:00)
[2022-03-12] MEDS: Morphine 4 MG/ML VIAL SLOW IVP PRN (12:38)
[2022-03-12 12:49] VITALS: TEMP 98.2
[2022-03-12] MEDS ORDERED: Sodium Chloride 0.9% 500 ML IV SCH (13:30)
[2022-03-12] MEDS ORDERED: Morphine 4 MG/ML VIAL ONE (16:06)
[2022-03-12] MEDS ORDERED: Furosemide 40 MG/4 ML VIAL ONE (16:08)
[2022-03-12 16:14] LABS: Actual Bicarbonate (HCO3a) 19.4 mEq/L (22-28); Base Excess (BEa) -3.8 mEq/L (-2.0 to +3.0); CO2 Tension 29.8 mmHg (35.0-45.0); Calcium, Ionized (arterial) 1.12 mmol/L (1.12-1.30); Carboxyhemoglobin (COHb) 0.9 gm% (0.0-3.0); Hemoglobin (Hb) 11.7 g/dL (14.0-18.0); O2 Tension (PaO2), arterial 83.6 mmHg (> 70.0); Potassium - ABG Lab 4.17 mmol/L (3.70-5.30); pH, Arterial 7.43 (7.35-7.45)
[2022-03-12] MEDS ORDERED: Pantoprazole 80 MG, Admixture Fee 1 EACH in Sodium Chloride 0.9% 100 ML IVPB SCH (16:15)
[2022-03-12 16:16] LABS: Puncture Site LRA
[2022-03-12] MEDS ORDERED: Propofol 1,000 MG/100 ML VIAL IV ONE (16:17)
[2022-03-12] MEDS ORDERED: NOREPINEPHRINE 8 MG/250 ML-D5W 250 ML ONE (16:20)
[2022-03-12] MEDS ORDERED: Rocuronium Bromide 10 MG/ML (10ML VIAL) ONE (16:26)
[2022-03-12] MEDS ORDERED: Fentanyl CADD 100 ML ONE (16:38)
[2022-03-12] MEDS ORDERED: Midazolam HCl 2 mg/2 ml Vial SLOW IVP PRN (16:53)
[2022-03-12] MEDS ORDERED: Fentanyl BOLUS 250 ML IVPB PRN (17:00)
[2022-03-12] MEDS ORDERED: Morphine 4 MG/ML VIAL SLOW IVP PRN (17:00)
[2022-03-12] MEDS ORDERED: Fentanyl CADD 100 ML IV SCH (17:00)
[2022-03-12] MEDS ORDERED: FENTANYL 50 MCG/ML 1 ML VIAL SLOW IVP SCH (17:00)
[2022-03-12] MEDS ORDERED: Propofol BOLUS 1,000 MG/100 ML VIAL IV PRN (17:00)
[2022-03-12] MEDS ORDERED: Propofol 1,000 MG/100 ML VIAL IV PRN (17:00)
[2022-03-12] MEDS ORDERED: DISCONTINUE PREVIOUS NARCOTIC PAIN MEDICATIONS AND BENZODIAZEPINES FS SCH (17:00)
[2022-03-12] MEDS ORDERED: Rocuronium Bromide 50 MG/5 ML VIAL IVP SCH (17:00)
[2022-03-12] MEDS ORDERED: PROPOFOL 200 MG/20 ML VIAL IVP SCH (17:15)
[2022-03-12] MEDS ORDERED: Furosemide 40 MG/4 ML VIAL SLOW IVP SCH (17:15)
[2022-03-12 20:10] VITALS: BP 182/84
[2022-03-12] MEDS ORDERED: Pantoprazole 40 MG VIAL IVP SCH (21:00)
== END 2022-03-12 17:09 | disposition expired | DRG 659 ==
LOC: ERS 09:31 → ERHOLD 10:48 → 2NO 13:49 → UNDODISIN 03-09 12:35 → CCU 03-12 16:06
PROVIDERS: ADMIT Internal Medicine; ATTEND Family Medicine
PROC: 3E03329 Introduction of Other Anti-infective into Peripheral Vein, Percutaneous Approach (ICD-10-PCS; 2022-03-02)
PROC: 0T778DZ Dilation of Left Ureter with Intraluminal Device, Via Natural or Artificial Opening Endoscopic (ICD-10-PCS; principal; 2022-03-03)
PROC: BT1FZZZ Fluoroscopy of Left Kidney, Ureter and Bladder (ICD-10-PCS; 2022-03-03)
PROC: 0TCB0ZZ Extirpation of Matter from Bladder, Open Approach (ICD-10-PCS; 2022-03-09)
PROC: 3E033XZ Introduction of Vasopressor into Peripheral Vein, Percutaneous Approach (ICD-10-PCS; 2022-03-12)
PROC: 0BH17EZ Insertion of Endotracheal Airway into Trachea, Via Natural or Artificial Opening (ICD-10-PCS; 2022-03-12)
PROC: 5A1935Z Respiratory Ventilation, Less than 24 Consecutive Hours (ICD-10-PCS; 2022-03-12)
PROC: 0B998ZZ Drainage of Lingula Bronchus, Via Natural or Artificial Opening Endoscopic (ICD-10-PCS; 2022-03-12)
PROC: 5A12012 Performance of Cardiac Output, Single, Manual (ICD-10-PCS; 2022-03-12)
DX: T83.518A Infection and inflammatory reaction due to other urinary catheter, initial encounter (principal); A41.59 Other Gram-negative sepsis; G93.41 Metabolic encephalopathy; R65.21 Severe sepsis with septic shock; J96.01 Acute respiratory failure with hypoxia; I69.351 Hemiplegia and hemiparesis following cerebral infarction affecting right dominant side; N17.9 Acute kidney failure, unspecified; Z66 Do not resuscitate; F41.9 Anxiety disorder, unspecified; F32.A Depression, unspecified; I87.8 Other specified disorders of veins; J44.9 Chronic obstructive pulmonary disease, unspecified; Z20.822 Contact with and (suspected) exposure to COVID-19; R31.9 Hematuria, unspecified; N21.0 Calculus in bladder; R57.1 Hypovolemic shock; F17.210 Nicotine dependence, cigarettes, uncomplicated; E83.42 Hypomagnesemia; D64.9 Anemia, unspecified; I46.8 Cardiac arrest due to other underlying condition; I49.01 Ventricular fibrillation; Z79.82 Long term (current) use of aspirin; Z79.899 Other long term (current) drug therapy; Z79.51 Long term (current) use of inhaled steroids; Y84.6 Urinary catheterization as the cause of abnormal reaction of the patient, or of later complication, without mention of misadventure at the time of the procedure
CPT/HCPCS: 31624; 36415; 36416; 36600; 71045; 71046; 74176; 74420; 80048; 80053; 80202; 81001; 82365; 82553; 82805; 83605; 83735; 84100; 84145; 84484; 85025; 87040; 87086; 87324; 87449; 87811; 88300; 93005; 93010; 94002; 94640; 97139; 99285; C1769; C2617; J0696; J1100; J1170; J1940; J2060; J2185; J2270; J2405; J2543; J2704; J3010; J3370; J3475; J3490; J7030; J7050; J7620; Q9967; U0003; U0005